=== PATIENT | male | born 1990 | race Two or more races ===

== ENCOUNTER 2024-10-27 12:51 | Inpatient (IN) | payer BC, OTHER ==
[~2024-10-27] VITALS: Ht 180.3 cm; Wt 115.0 kg
[2024-10-27 14:16] LABS: Basophils # (auto) 0 10 ^3/uL (0-0.2); Basophils % (auto) 0.2 % (0.0-2.0); Eosinophils # (auto) 0 10 ^3/uL (0-0.8); Eosinophils % (auto) 0.3 % (0.0-7.0); Hematocrit 50.4 % (41.0-53.0); Hemoglobin 16.9 g/dL (13.5-17.5); Lymphocytes # (auto) 1.1 10 ^3/uL (0.4-5.4); Lymphocytes % (auto) 7.6 % (10.0-50.0); Mean Corpuscular Hemoglobin 29.6 pg (28.0-32.0); Mean Corpuscular Hgb Conc. 33.5 g/dL (32.0-36.0); Mean Corpuscular Volume 88.5 fL (80.0-100.0); Monocytes # (auto) 0.9 10 ^3/uL (0-1.3); Monocytes % (auto) 6.6 % (0.0-12.0); Neutrophils % (auto) 85.3 % (37.0-80.0); Nucleated Red Blood Cells % 0.1 %; Platelet Count (auto) 401 10^3/uL (140-450); Red Cell Distribution Width 13.3 % (11.8-14.3); White Blood Cell 14.1 10^3/uL (4.4-10.8)
[2024-10-27 14:27] LABS: Chloride 103 mmol/L (98-107); Potassium 3.7 mmol/L (3.5-5.1)
[2024-10-27 14:28] LABS: Anion Gap 7 (5-15); Calcium 10.3 mg/dL (8.7-10.4); Carbon Dioxide 26 mmol/L (20-31)
[2024-10-27 14:32] LABS: Sodium 136 mmol/L (136-145)
[2024-10-27 14:33] LABS: BUN/Creatinine Ratio 14.2 (10.0-20.0); Blood Urea Nitrogen 16 mg/dL (9-23); Glucose 98 mg/dL (74-106)
--- NOTE | 2024-10-27 15:53 | ED.PDOC ---
History of Present Illness HPI Comments 34 y/o M, with a Hx of chronic diarrhea, presents with c/o non-radiating, diffused abdominal pain, diarrhea, and weakness, today. Patient reports onset of symptoms, this morning. He comments on diarrhea being watery and bile-like in appearance and different to what it, usually, appears as with his chronic di arrhea. Patient denies having any nausea, vomiting, hematochezia, rectal bleeding, or other associated symptoms or modifiers at this time. Chief Complaint: Abdominal Pain Time Seen by MD: 15:00 Reviewed Notes: Nurses Notes, Medications, Allergies Information Source: Patient Mode of Arrival: Ambulatory Severity: Moderate Timing: Hours Duration: Since onset Prehospital treatment: None Past Medical History Past Medical History (Other): chronic diarrhea Surgical History: Denies all surgeries Family History Family History: Unknown Social History Smoker: Non-Smoker Alcohol: Denies ETOH Use Drugs: Denies Drug Use Lives In: Home Gastrointestinal: reports: abdominal pain, diarrhea Neurological: reports: weakness All Other Systems: Reviewed and Negative (negative unless otherwise stated above or in HPI) Physical Exam General Appearance: Moderate Distress HEENT: Normal ENT Inspection, Pharynx Normal, TMs Normal Neck: Full Range of Motion, Non-Tender, Normal, Normal Inspection Respiratory: Chest Non-Tender, Lungs Clear, No Accessory Muscle Use, No Respiratory Distress, Normal Breath Sounds Cardiovascular: No Edema, No JVD, No Murmur, No Gallop, Normal Peripheral Pulses, Regular Rate/Rhythm Breast Exam: Deferred Gastrointestinal: Diffuse Genitalia: Deferred Pelvic: Deferred Rectal: Deferred Extremities: No calf tenderness, Normal capillary refill, Normal inspection, Normal range of motion, Non-tender, No pedal edema Musculoskeletal : Apperance: Normal Neurologic: Alert, dock manager II-XII nml as Tested, No Motor Deficits, Normal Affect, Normal Mood, No Sensory Deficits Cerebellar Function: NOT DONE Reflexes: NOT DONE Skin: Dry, Normal Color, Warm Peripheral Pulses: 3+ Radial (R), 3+ Radial (L) Lymphatic: No Adenopathy Was a procedure done? Was a procedure done?: No Differential Dx Considerations may include: gastritis, gastroenteritis, viral syndrome X-Ray, Labs, Meds, VS Vital Signs Date Time Temp Pulse Resp B/P (MAP) Pulse Ox O2 Delivery O2 Flow Rate FiO2 10/27/24 16:37 86 20 96 Room Air* 0 21 12/30/24 16:20 98.2 86 20 125/78 (94) 96 98.2 10/27/24 13:10 98.0 100 20 126/78 (94) 99 Lab Test 10/27/24 13:49 10/27/24 13:41 Range/Units POC Glucose 96 70-106 mg/dl White Blood Count 14.1 H 4.4-10.8 10^3/uL Red Blood Count 5.70 4.5-5.90 10^6/uL Hemoglobin 16.9 13.5-17.5 g/dL Hematocrit 50.4 41.0-53.0 % Mean Corpuscular Volume 88.5 80.0-100.0 fL Mean Corpuscular Hemoglobin 29.6 28.0-32.0 pg Mean Corpuscular Hemoglobin Concent 33.5 32.0-36.0 g/dL Red Cell Distribution Width 13.3 11.8-14.3 % Platelet Count 401 140-450 10^3/uL Mean Platelet Volume 8.3 6.9-10.8 fL Neutrophils (%) (Auto) 85.3 H 37.0-80.0 % Lymphocytes (%) (Auto) 7.6 L 10.0-50.0 % Monocytes (%) (Auto) 6.6 0.0-12.0 % Eosinophils (%) (Auto) 0.3 0.0-7.0 % Basophils (%) (Auto) 0.2 0.0-2.0 % Neutrophils # (Auto) 12.0 H 1.6-8.6 10 ^3/uL Lymphocytes # (Auto) 1.1 0.4-5.4 10 ^3/uL Monocytes # (Auto) 0.9 0-1.3 10 ^3/uL Eosinophils # (Auto) 0 0-0.8 10 ^3/uL Basophils # (Auto) 0 0-0.2 10 ^3/uL Nucleated Red Blood Cells 0.1 % Sodium Level 136 136-145 mmol/L Potassium Level 3.7 3.5-5.1 mmol/L Chloride Level 103 98-107 mmol/L Carbon Dioxide Level 26 20-31 mmol/L Anion Gap 7 5-15 Blood Urea Nitrogen 16 9-23 mg/dL Creatinine 1.13 0.700-1.30 mg/dL Glomerular Filtration Rate Calc 87 >90 mL/min BUN/Creatinine Ratio 14.2 10.0-20.0 Serum Glucose 98 74-106 mg/dL Calcium Level 10.3 8.7-10.4 mg/dL Current Medications Medications (Trade) Dose Ordered Sig/Glen Route Start Time Stop Time Status Last Admin Ceftriaxone Sodium 50 ml @ 100 mls/hr ONCE ONCE IV 10/27/24 16:00 10/27/24 16:29 DC 10/27/24 16:31 Metronidazole 100 ml @ 100 mls/hr ONCE ONCE IV 10/27/24 16:00 10/27/24 16:59 DC 10/27/24 16:31 Sodium Chloride 1,000 ml @ 1,000 mls/hr Q1H ONCE IV 10/27/24 16:00 10/27/24 16:59 DC 10/27/24 16:31 Patient alert. Complaining of abdominal pain. WBC elevated. Vitals stable. Abdomen is soft diffusely tender. WBC elevated. Establish intravenous access. Was given fluids. Was given Rocephin. Was given Flagyl. Reviewed his history. Possible irritable bowel syndrome. Explained to the patient. Continue cardiac monitoring. [place] [id number] Ph: [phone] DIAGNOSTIC IMAGING Diagnostic Imaging Report : [id number] Signed PATIENT: SOLOMON ADAMS ACCT: [id number] UNIT: [id number] : 1990 LOC: ER ROOM / BED: / AGE / SEX: 34 / M ADM STATUS: REG ER SERVICE [id number] ORDERING PHYSICIAN: CORAZON HEAD MD PROCEDURE(s): ABPL - CT AB PEL WO CON-NO ORAL OR IV REASON: colitis ORDER NUMBER(s): [id number], ACCESSION NUMBER(s): [id number] CT abdomen and pelvis without contrast INDICATION: colitis TECHNIQUE: Serial axial images were performed through the abdomen and pelvis and then reformatted in the sagittal and coronal plane. All CT scans at this medical facility are performed using dose modulation techniques as appropriate to a performed exam including the following: Automated exposure control was utilized; adjustment of the MA and/or KvP according to patient size; and use of iterative reconstruction technique. FINDINGS: Lung bases are clear. The heart size is borderline. Liver and spleen are normal in size without focal mass. No renal masses, stones or hydronephrosis. No masses or enlargement of the adrenal glands or pancreas. No biliary dilatation. No gallstones. There is jejunal and colonic distention with fluid. There is no bowel wall thickening. The appendix is normal in appearance. No free fluid. Within the pelvis, bladder is smooth walled without stones. No abnormal masses o r fluid collections. No hernia sacs. No adenopathy. IMPRESSION: 1. Mild colonic ileus. There is also slight thickening of the cespedes of the jejunum possibly due to jejunitis. Findings limited by lack of IV contrast Computed Tomographic Radiation Dosimetry Report: Total CTDI vol = 21 mGy Total DLP = 1248 mGy-cm Low dose protocols were performed. ATED BY: ROBERT COLBY MD DICTATED DATE/TIME: 10/27/241713 SIGNED BY: ROBERT COLBY MD SIGNED DATE/TIME: 10/27/241713 CC: Time of 1ST Reevaluation: 15:30 Reevaluation 1ST: Unchanged Patient Education/Counseling: Diagnosis, Treatment Family Education/Counseling: No Family Present Departure 1 Departure Time of Disposition: 15:57 Impression: Primary Impression: Acute abdominal pain Additional Impression: Non-specific colitis Disposition: ADMITTED INPATIENT Admit to: Med Surg Condition: Guarded Critical Care Note Critical Care Time?: No Stability Stability form required: No Heart Score Heart Score: Heart Score Response (Comments) Value History N/A 0 EKG N/A 0 Age N/A 0 Risk Factors N/A 0 Troponin N/A 0 Total 0 I personally scribed for EV MADRID DO ([email or web address]) on 10/27/24 at 15:53. Electronically submitted by Kaushik Bangura ([email or web address]). I personally scribed for CORAZON HEAD MD ([email or web address]) on 10/27/24 at 17:40. Electronically submitted by Kaushik Bangura ([email or web address]). I personally scribed for EV MADRID DO ([email or web address]) on 10/27/24 at 17:41. Elec tronically submitted by Kaushik Bangura ([email or web address]). EV MADRID DO Oct 27, 2024 15:53 CORAZON HEAD MD Oct 27, 2024 15:57
[2024-10-27] MEDS: SODIUM CHLORIDE 0.9% 1,000 ML IV ONE (16:31)
[2024-10-27] MEDS: metroNIDAZOLE 500MG/100ML 100 ML IV ONE (16:31)
[2024-10-27] MEDS: cefTRIAXone 1GM/50ML D5W 50 ML IV ONE (16:31)
[2024-10-27 16:37] VITALS: PULSE 86; RESP 20; O2SAT 96
--- NOTE | 2024-10-27 17:16 | DVH ---
CT abdomen and pelvis without contrast INDICATION: colitis TECHNIQUE: Serial axial images were performed through the abdomen and pelvis and then reformatted in the sagittal and coronal plane. All CT scans at this medical facility are performed using dose modulation techniques as appropriate t o a performed exam including the following: Automated exposure control was utilized; adjustment of the MA and/or KvP according to patient size; a nd use of iterative reconstruction technique. FINDINGS: Lung bases are clear. The heart size is borderline. Liver and spleen are normal in size w ithout focal mass. No renal masses, stones or hydronephrosis. No masses or enlargement of the adrenal glands or pancreas. No biliary dilatation. No gallstones. There is jejunal and colonic distention with fluid. There is no bowel wall thickening. The appendix i s normal in appearance. No free fluid. Within the pelvis, bladder is smooth walled without stones. No abnormal masses or fluid collections. No hernia sacs. No adenopathy. IMPRESSION: 1. Mild colonic ileus. There is also slight thickening of the cespedes of the jejunum possibly due to je junitis. Findings limited by lack of IV contrast Computed Tomographic Radiation Dosimetry Report: Total CTDI vol = 21 mGy Total DLP = 1248 mGy-cm Low dose protocols were performed.
--- NOTE | 2024-10-27 17:43 | ED.PDOC ---
History of Present Illness HPI Comments 34 y/o M, with a Hx of chronic diarrhea, presents with c/o non-radiating, diffused abdominal pain, diarrhea, and weakness, today. Patient reports onset of symptoms, this morning. He comments on diarrhea being watery and bile-like in appearance and different to what it, usually, appears as with his chronic di arrhea. Patient denies having any nausea, vomiting, hematochezia, rectal bleeding, or other associated symptoms or modifiers at this time. Chief Complaint: Abdominal Pain Time Seen by MD: 17:42 Reviewed Notes: Nurses Notes, Medications, Allergies Allergies: Coded Allergies: NO KNOWN ALLERGIES (Unverified , 10/27/24) Home Meds No Active Prescriptions or Reported Meds Information Source: Patient Mode of Arrival: Ambulatory Severity: Moderate Timing: Hours Duration: Since onset Prehospital treatment: None Past Medical History Past Medical History (Other): chronic diarrhea Surgical History: Denies all surgeries Family History Family History: Unknown Social History Smoker: Non-Smoker Alcohol: Denies ETOH Use Drugs: Denies Drug Use Lives In: Home Gastrointestinal: reports: abdominal pain, diarrhea All Other Systems: Reviewed and Negative (negative unless otherwise stated above or in HPI) Physical Exam General Appearance: Moderate Distress HEENT: Normal ENT Inspection, Pharynx Normal, TMs Normal Neck: Full Range of Motion, Non-Tender, Normal, Normal Inspection Respiratory: Chest Non-Tender, Lungs Clear, No Accessory Muscle Use, No Respiratory Distress, Normal Breath Sounds Cardiovascular: No Edema, No JVD, No Murmur, No Gallop, Normal Peripheral Pulses, Regular Rate/Rhythm Breast Exam: Deferred Gastrointestinal: Soft Genitalia: Deferred Pelvic: Deferred Rectal: Deferred Extremities: No calf tenderness, Normal capillary refill, Normal inspection, Normal range of motion, Non-tender, No pedal edema Musculoskeletal : Apperance: Normal Neurologic: Alert, calender feeder II-XII nml as Tested, No Motor Deficits, Normal Affect, Normal Mood, No Sensory Deficits Cerebellar Function: NOT DONE Reflexes: NOT DONE Skin: Dry, Normal Color, Warm Peripheral Pulses: 3+ Radial (R), 3+ Radial (L) Lymphatic: No Adenopathy Was a procedure done? Was a procedure done?: No Differential Dx Considerations may include: gastritis, electrolyte imbalance X-Ray, Labs, Meds, VS Vital Signs Date Time Temp Pulse Resp B/P (MAP) Pulse Ox O2 Delivery O2 Flow Rate FiO2 10/27/24 16:37 86 20 96 Room Air* 0 21 10/27/24 16:20 98.2 86 20 125/78 (94) 96 98.2 10/27/24 13:10 98.0 100 20 126/78 (94) 99 Lab Test 10/27/24 18:00 10/27/24 13:49 10/27/24 13:41 Range/Units Lactic Acid Level 0.8 0.4-2.0 mmol/L POC Glucose 96 70-106 mg/dl White Blood Count 14.1 H 4.4-10.8 10^3/uL Red Blood Count 5.70 4.5-5.90 10^6/uL Hemoglobin 16.9 13.5-17.5 g/dL Hematocrit 50.4 41.0-53.0 % Mean Corpuscular Volume 88.5 80.0-100.0 fL Mean Corpuscular Hemoglobin 29.6 28.0-32.0 pg Mean Corpuscular Hemoglobin Concent 33.5 32.0-36.0 g/dL Red Cell Distribution Width 13.3 11.8-14.3 % Platelet Count 401 140-450 10^3/uL Mean Platelet Volume 8.3 6.9-10.8 fL Neutrophils (%) (Auto) 85.3 H 37.0-80.0 % Lymphocytes (%) (Auto) 7.6 L 10.0-50.0 % Monocytes (%) (Auto) 6.6 0.0-12.0 % Eosinophils (%) (Auto) 0.3 0.0-7.0 % Basophils (%) (Auto) 0.2 0.0-2.0 % Neutrophils # (Auto) 12.0 H 1.6-8.6 10 ^3/uL Lymphocytes # (Auto) 1.1 0.4-5.4 10 ^3/uL Monocytes # (Auto) 0.9 0-1.3 10 ^3/uL Eosinophils # (Auto) 0 0-0.8 10 ^3/uL Basophils # (Auto) 0 0-0.2 10 ^3/uL Nucleated Red Blood Cells 0.1 % Sodium Level 136 136-145 mmol/L Potassium Level 3.7 3.5-5.1 mmol/L Chloride Level 103 98-107 mmol/L Carbon Dioxide Level 26 20-31 mmol/L Anion Gap 7 5-15 Blood Urea Nitrogen 16 9-23 mg/dL Creatinine 1.13 0.700-1.30 mg/dL Glomerular Filtration Rate Calc 87 >90 mL/min BUN/Creatinine Ratio 14.2 10.0-20.0 Serum Glucose 98 74-106 mg/dL Calcium Level 10.3 8.7-10.4 mg/dL [place] [address] Ph: [phone] DIAGNOSTIC IMAGING Diagnostic Imaging Report : [id number] Signed PATIENT: SOLOMON ADAMS ACCT: [id number] UNIT: [id number] : 1990 LOC: ER ROOM / BED: / AGE / SEX: 34 / M ADM STATUS: REG ER SERVICE [id number] ORDERING PHYSICIAN: CORAZON HEAD MD PROCEDURE(s): ABPL - CT AB PEL WO CON-NO ORAL OR IV REASON: colitis ORDER NUMBER(s): [id number], ACCESSION NUMBER(s): [id number] CT abdomen and pelvis without contrast INDICATION: colitis TECHNIQUE: Serial axial images were performed through the abdomen and pelvis and then reformatted in the sagittal and coronal plane. All CT scans at this medical facility are performed using dose modulation techniques as appropriate to a performed exam including the following: Automated exposure control was utilized; adjustment of the MA and/or KvP according to patient size; and use of iterative reconstruction technique. FINDINGS: Lung bases are clear. The heart size is borderline. Liver and spleen are normal in size without focal mass. No renal masses, stones or hydronephrosis. No masses or enlargement of the adrenal glands or pancreas. No biliary dilatation. No gallstones. There is jejunal and colonic distention with fluid. There is no bowel wall thickening. The appendix is normal in appearance. No free fluid. Within the pelvis, bladder is smooth walled without stones. No abnormal masses or fluid collections. No hernia sacs. No adenopathy. IMPRESSION: 1. Mild colonic ileus. There is also slight thickening of the cespedes of the jejunum possibly due to jejunitis. Findings limited by lack of IV contrast Computed Tomographic Radiation Dosimetry Report: Total CTDI vol = 21 mGy Total DLP = 1248 mGy-cm Low dose protocols were performed. ATED BY: ROBERT COLBY MD DICTATED DATE/TIME: 10/27/241713 SIGNED BY: ROBERT COLBY MD SIGNED DATE/TIME: 10/27/241713 CC: Patient alert pain Complaining of abdominal discomfort pain CT scan of the abdomen reviewed does show ileus with possible jejunitis. Vitals stable. WBC elevated. Establish intravenous access. Was given fluids. Reviewed his history. Explained to the patient. Continue cardiac monitoring. Time of 1ST Reevaluation: 15:57 Reevaluation 1ST: Unchanged Patient Education/Counseling: Diagnosis, Treatment Family Education/Counseling: No Family Present Departure 1 Departure Time of Disposition: 15:57 Impression: Primary Impression: Acute abdominal pain Additional Impression: Non-specific colitis Disposition: ADMITTED INPATIENT Admit to: Med Surg Condition: Guarded e-Prescriptions No Active Prescriptions or Reported Meds Critical Care Note Critical Care Time?: No Stability Stability form required: No Heart Score Heart Score: Heart Score Response (Comments) Value History N/A 0 EKG N/A 0 Age N/A 0 Risk Factors N/A 0 Troponin N/A 0 Total 0 I personally scribed for CORAZON HEAD MD ([email or web address]) on 10/27/24 at 17:43. Electronically submitted by Kaushik Bangura ([email or web address]). CORAZON HEAD MD Oct 27, 2024 17:43
[2024-10-27 22:27] LABS: Basophils # (auto) 0.1 10 ^3/uL (0-0.2); Basophils % (auto) 0.7 % (0.0-2.0); Eosinophils # (auto) 0.2 10 ^3/uL (0-0.8); Eosinophils % (auto) 1.9 % (0.0-7.0); Hematocrit 47.3 % (41.0-53.0); Hemoglobin 15.8 g/dL (13.5-17.5); Lymphocytes # (auto) 1.4 10 ^3/uL (0.4-5.4); Lymphocytes % (auto) 14.3 % (10.0-50.0); Mean Corpuscular Hemoglobin 29.7 pg (28.0-32.0); Mean Corpuscular Hgb Conc. 33.4 g/dL (32.0-36.0); Monocytes # (auto) 0.8 10 ^3/uL (0-1.3); Monocytes % (auto) 7.6 % (0.0-12.0); Neutrophils # (auto) 7.6 10 ^3/uL (1.6-8.6); Neutrophils % (auto) 75.5 % (37.0-80.0); Platelet Count (auto) 382 10^3/uL (140-450); Red Blood Cells 5.31 10^6/uL (4.5-5.90); Red Cell Distribution Width 13.1 % (11.8-14.3); White Blood Cell 10.1 10^3/uL (4.4-10.8)
[2024-10-27 22:49] LABS: Albumin 4.5 g/dL (3.2-4.8); Anion Gap 5 (5-15); Aspartate Aminotransferase 35 U/L (13-40); BUN/Creatinine Ratio 16.5 (10.0-20.0); Bilirubin, Total 0.6 mg/dL (0.2-1.0); Blood Urea Nitrogen 16 mg/dL (9-23); Calcium 9.6 mg/dL (8.7-10.4); Carbon Dioxide 28 mmol/L (20-31); Chloride 105 mmol/L (98-107); Glucose 97 mg/dL (74-106); Potassium 3.6 mmol/L (3.5-5.1); Sodium 138 mmol/L (136-145); Total Protein 7.6 g/dL (5.7-8.2)
[2024-10-27 22:50] LABS: Alanine Aminotransferase 60 U/L (7-40); Alkaline Phosphatase 123 U/L (46-116)
[2024-10-28 00:02] LABS: Erythrocyte Sedimentation Rate 6 mm/hr (0-20)
[2024-10-28] MEDS: metroNIDAZOLE 500MG/100ML 100 ML IV ONE (02:42)
[2024-10-28] MEDS: SODIUM CHLORIDE 0.9% 1,000 ML IV SCH (02:42)
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
[2024-10-28] MEDS: PANTOPRAZOLE 40 MG TAB PO SCH (06:16)
[2024-10-28] MEDS: metroNIDAZOLE 500MG/100ML 100 ML IV SCH (08:46)
[2024-10-28 11:29] LABS: Rapid Influenza A Negative (Negative); Rapid Influenza B Negative (Negative)
[2024-10-28 11:30] LABS: COVID19 ANTIGEN SOFIA FIA NEGATIVE (NEGATIVE)
[2024-10-28 14:44] VITALS: PULSE 70; RESP 16; O2SAT 16
[2024-10-28] MEDS: cefTRIAXone 1GM/50ML D5W 50 ML IV SCH (16:53)
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
[2024-10-28] MEDS ORDERED: SACC250C PO (19:16)
[2024-10-28] MEDS ORDERED: AUG875T PO (19:16)
[2024-10-28] MEDS ORDERED: PANT40TA57 PO (19:16)
[2024-10-28 19:45] VITALS: BP 99/52; PULSE 63; RESP 18; TEMP 98.7; O2SAT 100
== END 2024-10-28 23:47 | disposition home or self-care (01) | DRG 392 ==
LOC: ER 12:51 → OVERFLOW 21:49 → WEST WING 10-28 23:47
PROVIDERS: ADMIT Student in an Organized Health Care Education/Training Program; ATTEND Student in an Organized Health Care Education/Training Program
DX: K29.80 Duodenitis without bleeding (principal); K56.7 Ileus, unspecified; Z20.822 Contact with and (suspected) exposure to COVID-19; K21.9 Gastro-esophageal reflux disease without esophagitis; K58.9 Irritable bowel syndrome, unspecified; K90.0 Celiac disease; K86.89 Other specified diseases of pancreas; E66.9 Obesity, unspecified; Z68.35 Body mass index [BMI] 35.0-35.9, adult
CPT/HCPCS: 36415; 74176; 80048; 80053; 80074; 82270; 82962; 83605; 83690; 85025; 85048; 85652; 86141; 86703; 87040; 87045; 87426; 87427; 87804; G0378; J3490

== ENCOUNTER 2025-05-19 11:55 | Emergency (ER) | payer BC ==
[~2025-05-19] VITALS: Ht 180.3 cm; Wt 114.2 kg
[~2025-05-19 11:55] MED LIST: AUG875T PO; PANT40TA57 PO; SACC250C PO
[2025-05-19 11:58] VITALS: BP 120/70; RESP 17; TEMP 98.3; O2SAT 100
--- NOTE | 2025-05-19 12:27 | ED.PDOC ---
HPI Comments 34 y/o M, presents to the ED for CC of chest pain. Patient states, he has been experiencing right sided sharp chest pain that radiates to his back onset, 0830 this morning (05/19/25). Patient endorses, pain to worsen with inhalation c/o current 8/10 pain. Patient denies, shortness of breath, cough, nasal congestion, palpitations, or dizziness. No other associated symptoms, modifiers, recent injuries or sick contacts present at this time. Chief Complaint: Chest Pain Time Seen by MD: 12:15 Reviewed Notes: Nurses Notes, Medications, Allergies Allergies: Coded Allergies: NO KNOWN ALLERGIES (Unverified , 10/27/24) Home Meds Active Scripts Yeast (S. Boulardii)(S. Cerevi (Florastor) 250 Mg Cap, 250 MG PO DAILY for 14 Days, #14 CAP 0 Refills Prov:KIM PETTIT MD 10/28/24 Amoxicillin & Pot Clavulanate (AUGMENTIN TABLET) 875 Mg Tb, 875 MG PO BID for 7 Days, #14 TAB 0 Refills Prov:KIM PETTIT MD 10/28/24 Pantoprazole Sodium Sesquihydr (Pantoprazole Sodium Dr) 40 Mg Tab, 40 MG PO DAILY PRN for 30 Days, #30 TAB 0 Refills Prov:KIM PETTIT MD 10/28/24 Information Source: Patient Mode of Arrival: Ambulatory Severity: Moderate Timing: Hours Duration: Since onset Prehospital treatment: None Location: Chest (R) Radiation: Back Quality: Sharp Onset: At Rest Cardiac Risk Factors: None PE Risk Factors: None History of: None Modifying Factors: Nothing Associated Signs and Symptoms: None Past Medical History PAST MEDICAL HISTORY: Denies Surgical History: Denies all surgeries Family History Family History: Unknown Social History Smoker: Non-Smoker Alcohol: Denies ETOH Use Drugs: Denies Drug Use Lives In: Home Constitutional: denies: chills, diaphoresis, fatigue, fever, malaise, sweats, weakness, others EENTM: denies: blurred vision, double vision, ear bleeding, ear discharge, ear drainage, ear pain, ear ringing, eye pain, eye redness, hearing loss, mouth pain, mouth swelling, nasal discharge, nose bleeding, nose congestion, nose pain, photophobia, tearing, throat pain, throat swelling, voice changes, others Respiratory: denies: cough, hemoptysis, orthopnea, SOB at rest, shortness of breath, SOB with excertion, stridor, wheezing, others Cardiovascular: reports: chest pain; denies: dizzy spells, diaphoresis, Dyspnea on exertion, edema, irregular heart beat, left arm pain, lightheadedness, palpitations, PND, syncope, others Gastrointestinal: denies: abdomen distended, abdominal pain, blood streaked bowels, constipated, diarrhea, dysphagia, difficulty swallowing, hematemesis, melena, nausea, poor appetite, poor fluid intake, rectal bleeding, rectal pain, vomiting, others Genitourinary: denies: burning, dysuria, flank pain, frequency, hematuria, incontinence, penile discharge, penile sore, pain, testicle pain, testicle swelling, urgency, others Neurological: denies: dizziness, fainting, headache, left sided numbness, left sided weakness, numbness, paresthesia, pre-existing deficit, right sided numbness, right sided weakness, seizure, speech problems, tingling, tremors, weakness, others Musculoskeletal: denies: back pain, gout, joint pain, joint swelling, muscle pain, muscle stiffness, neck pain, others Integumetry: denies: bruises, change in color, change in hair/nails, dryness, laceration, lesions, lumps, rash, wounds, others Allergic/Immunocompromised: denies: Difficulty Healing, Frequent Infections, Hives, Itching, others Hematologic/Lymphatic: denies: anemia, blood clots, easy bleeding, easy bruising, swollen glands, others Endocrine: denies: excessive hunger, excessive sweating, excessive thirst, excessive urination, flushing, intolerance to cold, intolerance to heat, unexplained weight gain, unexplained weight loss, others Psychiatric: denies: anxiety, bipolar disorder, depression, hopeless, panic disorder, schizophrenia, sleepless, suicidal, others All Other Systems: Reviewed and Negative Physical Exam General Appearance: Moderate Distress HEENT: Normal ENT Inspection, Pharynx Normal, TMs Normal Neck: Full Range of Motion, Non-Tender, Normal, Normal Inspection Respiratory: Chest Non-Tender, Lungs Clear, No Accessory Muscle Use, No Respiratory Distress, Normal Breath Sounds Cardiovascular: No Edema, No JVD, No Murmur, No Gallop, Normal Peripheral Pul ses, Regular Rate/Rhythm Breast Exam: Deferred Gastrointestinal: No Organomegaly, Non Tender, No Pulsatile Mass, Normal Bowel Sounds, Soft Genitalia: Deferred Pelvic: Deferred Rectal: Deferred Extremities: No calf tenderness, Normal capillary refill, Normal inspection, Normal range of motion, Non-tender, No pedal edema Musculoskeletal : Apperance: Normal Neurologic: Alert, television repairman II-XII nml as Tested, No Motor Deficits, Normal Affect, Normal Mood, No Sensory Deficits Cerebellar Function: Normal Reflexes: Normal Skin: Dry, Normal Color, Warm Peripheral Pulses: 3+ Radial (R), 3+ Radial (L) Lymphatic: No Adenopathy Was a procedure done? Was a procedure done?: No CP Differential Dx Differential Diagnosis: A-fib, A-Flutter, Angina, Anxiety / Panic Attack, Atrial Dysrhythmia, Electrolyte Disorder Differential Diagnosis: HTN Essential, HTN Accelerated Differential Diagnosis: Angina, Chest Wall Pain, Costochondritis X-Ray, Labs, Meds, VS Vital Signs Date Time Temp Pulse Resp B/P (MAP) Pulse Ox O2 Delivery O2 Flow Rate FiO2 05/19/25 13:33 67 05/19/25 12:00 80 05/19/25 11:58 98.3 77 17 120/70 (87) 100 98.3 Lab Test 05/19/25 12:09 Range/Units White Blood Count 10.8 4.4-10.8 10^3/uL Red Blood Count 5.18 4.5-5.90 10^6/uL Hemoglobin 15.4 13.5-17.5 g/dL Hematocrit 45.4 41.0-53.0 % Mean Corpuscular Volume 87.7 80.0-100.0 fL Mean Corpuscular Hemoglobin 29.7 28.0-32.0 pg Mean Corpuscular Hemoglobin Concent 33.9 32.0-36.0 g/dL Red Cell Distribution Width 13.8 11.8-14.3 % Platelet Count 347 140-450 10^3/uL Mean Platelet Volume 9.4 6.9-10.8 fL Neutrophils (%) (Auto) 57.3 37.0-80.0 % Lymphocytes (%) (Auto) 32.5 10.0-50.0 % Monocytes (%) (Auto) 7.1 0.0-12.0 % Eosinophils (%) (Auto) 2.4 0.0-7.0 % Basophils (%) (Auto) 0.7 0.0-2.0 % Neutrophils # (Auto) 6.2 1.6-8.6 10 ^3/uL Lymphocytes # (Auto) 3.5 0.4-5.4 10 ^3/uL Monocytes # (Auto) 0.8 0-1.3 10 ^3/uL Eosinophils # (Auto) 0.3 0-0.8 10 ^3/uL Basophils # (Auto) 0.1 0-0.2 10 ^3/uL Nucleated Red Blood Cells 0.1 % D-Dimer, Quantitative < 0.19 0.0-0.49 mg/L FEU Sodium Level 139 136-145 mmol/L Potassium Level 4.0 3.5-5.1 mmol/L Chloride Level 102 98-107 mmol/L Carbon Dioxide Level 27 20-31 mmol/L Anion Gap 10 5-15 Blood Urea Nitrogen 15 9-23 mg/dL Creatinine 1.06 0.700-1.30 mg/dL Glomerular Filtration Rate Calc 94 >90 mL/min BUN/Creatinine Ratio 14.2 10.0-20.0 Serum Glucose 90 74-106 mg/dL Calcium Level 10.5 H 8.7-10.4 mg/dL Troponin I High Sensitivity < 3 L </=54 ng/L Patient alert. Complaining of chest pain. Vitals stable. Answering questions. He is perspiring. No difference in the blood pressure between the arms. EKG reviewed does not show any acute changes. Chest x-ray reviewed does not show any acute changes. Explained to the patient. Continue monitoring. [place] [id number] Ph: [phone] DIAGNOSTIC IMAGING Diagnostic Imaging Report : [id number] Signed PATIENT: SOLOMON ADAMS ACCT: [id number] UNIT: [id number] : 1990 LOC: ER ROOM / BED: / AGE / SEX: 34 / M ADM STATUS: REG ER SERVICE 1217 ORDERING PHYSICIAN: CORAZON HEAD MD PROCEDURE(s): CXRP - CHEST PORTABLE REASON: sob ORDER NUMBER(s): [id number], ACCESSION NUMBER(s): [id number] EXAM: XY CHEST PORTABLE Indication: sob Technique: Single frontal view of the chest was obtained Comparison: None FINDINGS: Lines and Tubes: None Lungs: No focal consolidation. Pleura: No effusion. No pneumothorax. Cardiomediastinal contours: Unremarkable Bones: No acute osseous abnormality. IMPRESSION: No acute cardiopulmonary disease. ATED BY: DUONG WATSON MD DICTATED DATE/TIME: 05/19/251239 SIGNED BY: DUONG WATSON MD SIGNED DATE/TIME: 05/19/251239 CC: Time of 1ST Reevaluation: 12:45 Reevaluation 1ST: Unchanged Patient Education/Counseling: Diagnosis, Treatment Family Education/Counseling: No Family Present SEPSIS Sepsis Screen Date sepsis recognized/suspect: May 19, 2025 Time Sepsis recognized/suspect: 1158 Recent Procedure: No On Antibiotic Therapy: No Respiratory Rate >20: No Heart Rate >90: No Temp<36 C (96.8 F) or >38.3 C: No SBP <90 or MAP <65 mmHG: No New Acute Mental Status Change: No Is the patient on CPAP, BIPAP,: No Physician Orders Electrocardigram (05/19/25 12:58) Electrocardigram (05/19/25 14:58) Chest Portable (05/19/25 12:17) Vital Signs Date Time Temp Pulse Resp B/P (MAP) Pulse Ox O2 Delivery O2 Flow Rate FiO2 05/19/25 13:33 67 05/19/25 12:00 80 05/19/25 11:58 98.3 77 17 120/70 (87) 100 98.3 Laboratory Tests Test 05/19/25 12:09 White Blood Count 10.8 10^3/uL (4.4-10.8) Departure 1 Departure Time of Disposition: 13:03 Impression: Primary Impression: Chest pain of unknown etiology Disposition: ADMITTED INPATIENT Admit to: Med Surg Condition: Guarded Critical Care Note Critical Care Time?: Yes (90 min-critical care time only) Critical care comment: Continue to monitor Stability Stability form required: No Heart Score Heart Score: Heart Score Response (Comments) Value History Slightly Suspicious 0 EKG Normal 0 Age <45 0 Risk Factors No known risk factors 0 Troponin Normal limit 0 Total 0 I personally scribed for CORAZON HEAD MD ([email or web address]) on 05/19/25 at 12:27. Electronically submitted by Vivian Simmons ([email or web address]). I personally scribed for CORAZON HEAD MD ([email or web address]) on 05/19/25 at 13:34. Electronically submitted by Vivian Simmons [email or web address]). CORAZON HEAD MD May 19, 2025 12:27
--- NOTE | 2025-05-19 12:43 | DVH ---
EXAM: XY CHEST PORTABLE Indication: sob Technique: Single frontal view of the chest was obtained Comparison: None FINDINGS: Lines and Tubes: None Lungs: No focal consolidation. Pleura: No effusion. No pneumothorax. Cardiomediastinal contours: Unremarkable Bones: No acute osseous abnormality. IMPRESSION: No acute cardiopulmonary disease.
[2025-05-19 13:04] LABS: Hematocrit 45.4 % (41.0-53.0); Hemoglobin 15.4 g/dL (13.5-17.5); Mean Corpuscular Hemoglobin 29.7 pg (28.0-32.0); Mean Corpuscular Volume 87.7 fL (80.0-100.0); Nucleated Red Blood Cells % 0.1 %
[2025-05-19 13:10] LABS: Chloride 102 mmol/L (98-107); Potassium 4.0 mmol/L (3.5-5.1); Sodium 139 mmol/L (136-145)
[2025-05-19 13:11] LABS: Anion Gap 10 (5-15); Carbon Dioxide 27 mmol/L (20-31)
[2025-05-19 13:12] LABS: Calcium 10.5 mg/dL (8.7-10.4)
[2025-05-19 13:16] LABS: BUN/Creatinine Ratio 14.2 (10.0-20.0); Blood Urea Nitrogen 15 mg/dL (9-23); Glucose 90 mg/dL (74-106)
[2025-05-19 13:33] VITALS: PULSE 67
--- NOTE | 2025-05-19 14:45 | ECG ---
[facility] Test Date: 2025-05-19 Test Time: 13:33:19 Pat Name: SOLOMON ADAMS Department: ED Room: Gender: M Taste Tester: : 1990 Requested By: CORAZON HEAD Order Number: [id number] Reading MD: Paresh Ortiz Measurements Intervals [place] Rate: 67 P: 14 FL: 158 QRS: 92 QRSD: 95 T: -11 QT: 365 QTc: 386 Interpretive Statements Sinus rhythm Borderline right axis deviation Low voltage, precordial leads Borderline T abnormalities, diffuse leads Electronically Signed On 05-20-2025 17:01:18 PDT by Paresh Ortiz Please click the below link to view image of tracing.
--- NOTE | 2025-05-21 08:00 | ECG ---
[facility] Test Date: 2025-05-19 Test Time: 12:00:42 Pat Name: SOLOMON ADAMS Department: ER Room: Gender: M Park Interpreter: MARIAELENA : 1990 Requested By: CORAZON HEAD Order Number: [id number] Reading MD: Measurements Intervals [place] Rate: 80 P: 42 MN: 167 QRS: 114 QRSD: 97 T: -2 QT: 359 QTc: 415 Interpretive Statements Unknown rhythm, irregular rate Right axis deviation Low voltage, precordial leads Borderline T abnormalities, inferior leads Please click the below link to view image of tracing.
== END 2025-05-19 15:19 | disposition left against medical advice (07) ==
LOC: ER 11:55
DX: R07.89 Other chest pain (principal); Z79.899 Other long term (current) drug therapy
CPT/HCPCS: 36415; 71045; 80048; 84484; 85025; 85379; 93005